=== PATIENT | female | born 1935 | race Caucasian/White ===

== ENCOUNTER 2017-11-11 07:28 | Day surgery (SDC) | payer OTHER ==
[~2017-11-11 07:28] MED LIST: TETRACAINE 0.5% OPHTH 1 DOSE AFFEYE ONE; VIGAMOX 0.5% OPHTH 1 DOSE AFFEYE ONE
[2017-11-11] MEDS ORDERED: VIGAMOX 0.5% OPHTH 1 DOSE AFFEYE ONE ×3 (07:30→10:41)
[2017-11-11] MEDS ORDERED: PROLENSA OPHTH 1 DOSE AFFEYE ONE (07:32)
[2017-11-11] MEDS ORDERED: ALPHAGAN-P OPHTH 1 DOSE AFFEYE ONE (07:34)
[2017-11-11] MEDS ORDERED: AK-DILATE 2.5% OPHTH 1 DOSE OP ONE ×5 (07:35→07:45)
[2017-11-11] MEDS ORDERED: MYDRIACIL OPHTH 1 DOSE AFFEYE ONE ×5 (07:35→07:45)
[2017-11-11] MEDS ORDERED: CYCLOGYL 1% OPHTH 1 DOSE OP ONE ×5 (07:35→07:45)
[2017-11-11] MEDS ORDERED: NS 500 ML IV 500 ML IV ONE (07:55)
[2017-11-11] MEDS ORDERED: AK-DILATE 10% OPHTH 1 DOSE AFFEYE ONE (08:55)
[2017-11-11] MEDS ORDERED: BETADINE OPHTH SOLN 5% EACHEYE ONE (10:18)
[2017-11-11] MEDS ORDERED: TETRACAINE 0.5% OPHTH 1 DOSE AFFEYE ONE ×3 (10:18→10:30)
[2017-11-11] MEDS ORDERED: XYLOCAINE-MPF 1% IJ ONE ×2 (10:25→10:30)
[2017-11-11] MEDS ORDERED: ADRENALINE CHL INJ IJ ONE ×2 (10:25→10:30)
[2017-11-11] MEDS ORDERED: DUOVISC IO ONE ×2 (10:25→10:30)
[2017-11-11] MEDS ORDERED: BSS OPHTH (PLAIN) 500 ML with VANCOMYCIN HCL 500 MG VIAL 25 MG, ADRENALINE CHL INJ 1 MG IR ONE ×6 (10:25)
[2017-11-11] MEDS ORDERED: DIPRIVAN VIAL ONE (10:48)
[2017-11-11 10:59] VITALS: BP 175/85
== END 2017-11-11 11:02 | disposition home or self-care (01) ==
LOC: SURG1 07:28
PROVIDERS: ATTEND Ophthalmology
PROC: 08RJ3JZ Replacement of Right Lens with Synthetic Substitute, Percutaneous Approach (ICD-10-PCS; principal; 2017-11-11 18:00)
PROC: 08DJ3ZZ Extraction of Right Lens, Percutaneous Approach (ICD-10-PCS; principal; 2017-11-11 18:00)
DX: H25.11 Age-related nuclear cataract, right eye (principal); H25.011 Cortical age-related cataract, right eye; H25.041 Posterior subcapsular polar age-related cataract, right eye
CPT/HCPCS: 99100; A4217; J0170; J3370; J3490

== ENCOUNTER 2017-11-25 10:14 | Day surgery (SDC) | payer OTHER ==
[2017-11-25] MEDS ORDERED: VIGAMOX 0.5% OPHTH 1 DOSE AFFEYE ONE ×5 (10:21→13:55)
[2017-11-25] MEDS ORDERED: PROLENSA OPHTH 1 DOSE AFFEYE ONE (10:32)
[2017-11-25] MEDS ORDERED: ALPHAGAN-P OPHTH 1 DOSE AFFEYE ONE (10:33)
[2017-11-25] MEDS ORDERED: CYCLOGYL 1% OPHTH 1 DOSE OP ONE ×3 (10:34→10:36)
[2017-11-25] MEDS ORDERED: MYDRIACIL OPHTH 1 DOSE AFFEYE ONE ×3 (10:34→10:36)
[2017-11-25] MEDS ORDERED: AK-DILATE 2.5% OPHTH 1 DOSE OP ONE ×3 (10:34→10:36)
[2017-11-25] MEDS ORDERED: TETRACAINE 0.5% OPHTH 1 DOSE AFFEYE ONE ×4 (10:50→13:45)
[2017-11-25] MEDS ORDERED: NS 500 ML IV 500 ML IV ONE (11:21)
[2017-11-25] MEDS ORDERED: BETADINE OPHTH SOLN 5% EACHEYE ONE (13:35)
[2017-11-25] MEDS ORDERED: XYLOCAINE-MPF 1% IJ ONE ×2 (13:40→13:45)
[2017-11-25] MEDS ORDERED: ADRENALINE CHL INJ IJ ONE ×2 (13:40→13:45)
[2017-11-25] MEDS ORDERED: DUOVISC IO ONE ×2 (13:40→13:45)
[2017-11-25] MEDS ORDERED: BSS OPHTH (PLAIN) 500 ML with VANCOMYCIN HCL 500 MG VIAL 25 MG, ADRENALINE CHL INJ 1 MG IR ONE ×6 (13:41)
[2017-11-25 14:38] VITALS: BP 134/65
[2017-11-25] MEDS ORDERED: VERSED ONE (15:41)
[2017-11-25] MEDS ORDERED: DIPRIVAN VIAL ONE (15:41)
== END 2017-11-25 14:10 | disposition home or self-care (01) ==
LOC: SURG1 10:14
PROVIDERS: ATTEND Ophthalmology
PROC: 08DK3ZZ Extraction of Left Lens, Percutaneous Approach (ICD-10-PCS; principal; 2017-11-25 20:15)
PROC: 08RK3JZ Replacement of Left Lens with Synthetic Substitute, Percutaneous Approach (ICD-10-PCS; principal; 2017-11-25 20:15)
DX: H25.12 Age-related nuclear cataract, left eye (principal); H25.012 Cortical age-related cataract, left eye; H25.042 Posterior subcapsular polar age-related cataract, left eye
CPT/HCPCS: 99100; A4217; J0170; J2250; J3370; J3490

== ENCOUNTER 2023-09-05 10:40 | Inpatient (IN) ==
[2023-09-05 12:57] VITALS: BMI 38.8
[2023-09-05 14:19] LABS: INR 1.06 (0.8-1.3)
[2023-09-05 14:20] LABS: BASOPHILS # (AUTO) 0.1 X10^3/uL (0.0-0.1); BASOPHILS % (AUTO) 0.8 % (0.2-1.0); EOSINOPHILS # (AUTO) 0.1 x10^3/uL (0.0-0.2); EOSINOPHILS % (AUTO) 0.8 % (0.9-2.9); HEMOGLOBIN 14.2 g/dL (12.0-16.0); LYMPHOCYTES # (AUTO) 1.4 X10^3/uL (1.3-2.9); LYMPHOCYTES % (AUTO) 14.1 % (21.0-51.0); MEAN CORPUSCULAR HEMOGLOBIN 29.5 pg (27.0-34.0); MEAN CORPUSCULAR VOLUME 89.5 fL (80.0-100.0); MEAN PLATELET VOLUME 8.2 fL (7.4-11.0); MONOCYTES # (AUTO) 0.8 x10^3/uL (0.3-0.8); MONOCYTES % (AUTO) 7.6 % (0.0-13.0); NEUTROPHILS # (AUTO) 7.7 x10^3/uL (2.2-4.8); NEUTROPHILS % (AUTO) 76.7 % (42.0-75.0); PLATELET COUNT 217 X10^3/uL (150.0-450.0); RED CELL DISTRIBUTION WIDTH 15.1 % (11.6-16.5)
[2023-09-05 14:25] LABS: ALANINE AMINOTRANSFERASE 18 Units/L (12-78); ALBUMIN 3.2 g/dL (3.4-5.0); ALKALINE PHOSPHATASE 87 Units/L (46-116); ASPARTATE AMINO TRANSFERASE 26 Units/L (15-37); BLOOD UREA NITROGEN 21 mg/dL (7-18); CALCIUM 8.4 mg/dL (8.5-10.1); CARBON DIOXIDE 27.2 mmol/L (21-32); CHLORIDE 104 mmol/L (98-107); CREATININE 1.14 mg/dL (0.55-1.02); GLUCOSE 89 mg/dL (65-99); POTASSIUM 4.3 mmol/L (3.5-5.1); SODIUM 138 mmol/L (136-145); TOTAL PROTEIN 6.3 g/dL (6.4-8.2); eGFR NON BLACK RACES 48 (>60)
--- NOTE | 2023-09-05 14:36 | EKG ---
Test Reason : SOB Blood Pressure : */* mmHG Vent. Rate : 65 BPM Atrial Rate : 65 BPM P-R Int : 182 ms QRS Dur : 82 ms QT Int : 452 ms P-R-T Axes : 16 -39 15 degrees QTc Int : 470 ms Normal sinus rhythm Left axis deviation Abnormal ECG No previous ECGs available Confirmed by Luis Manuel Brooks MD ([id number]) on 09/08/2023 7:35:28 AM Referred By: Confirmed By: Luis Manuel Brooks MD
[2023-09-05] MEDS: HEPARIN SODIUM IN D5W 25,000 UNITS/500 ML BAG IV PRN (15:00)
[2023-09-05] MEDS: LR 1,000 ML IV 1,000 ML IV SCH (15:01)
[2023-09-05] MEDS: HEPARIN SODIUM INJ 5000 UNITS IVP ONE (15:01)
[2023-09-05] MEDS: CATAPRES-TTS-1 TD SCH (15:07)
--- NOTE | 2023-09-05 17:34 | CT ---
EXAM:CTA AORTA WITH RUNOFFHISTORY:ischemic rest pain both legs;COMPARISON:NoneTECHNIQUE:Multiple CT axial images of the chest abdomen pelvis and lower extremity runoff were obtained before and after using IV contrast. 3D reconstructions utilizing axial MIPS imaging was performed and reviewed. Dose reduction techniques including Automated Exposure Control (AEC) and adjustment of mA and kV were utilized.Stenoses are measured using NASCET criteria.FINDINGS:Without contrast: Atherosclerotic calcification is present in the coronary arteries, aorta, and major arterial branches. Surgical clips are present in the gallbladder fossa from a cholecystectomy.With contrast: The aorta has a normal caliber from the aortic valve, through the arch and extending into the mid to lower abdomen to the bifurcation. There is no aortic aneurysm, dissection, or stenosis.Pulmonary arteries are well seen to segmental branches. There are no pulmonary emboli.The usual three-vessel anatomy is present off the aortic arch. No stenosis at the origins of the great vessels.All 3 mesenteric vessels are patent. Patent single artery to each kidney.Common iliac and external iliac arteries are widely patent. Both internal iliac arteries are widely patent.Right lower extremity: Diffuse disease is present in the femoropopliteal artery without focal occlusion. All 3 trifurcation branches are present in the proximal calf and extend to the ankle. Anterior tibial and posterior tibial extend into the foot.Left lower extremity: Diffuse atherosclerotic disease is present with no significant femoropopliteal artery occlusion. All 3 trifurcation branches are patent in the proximal calf and extend to the ankle. Anterior tibial and posterior tibial arteries extend into the foot.Body: Cardiomegaly is present. No pneumonia or pleural effusion. No biliary obstruction. No hydronephrosis. No bowel obstruction.IMPRESSION:1. Atherosclerosis without significant inflow or outflow occlusion2. No aneurysm or dissectionTHIS IS AN ELECTRONICALLY VERIFIED FINAL REPORT09/05/2023 5:31 PM - Electronically signed by Sebastien Eckert MD
[2023-09-05] MEDS: COZAAR PO ONE (17:37)
[2023-09-05] MEDS: OMNIPAQUE 350 mg/mL 50 mL BTL 50 ML ONE (17:47)
[2023-09-05] MEDS: OMNIPAQUE 350 mg/mL 100 mL BTL 100 ML ONE (17:47)
[2023-09-05] MEDS: PERCOCET TAB 5/325 MG PO PRN (21:20)
[2023-09-06 03:20] LABS: BASOPHILS # (AUTO) 0.1 X10^3/uL (0.0-0.1); BASOPHILS % (AUTO) 0.8 % (0.2-1.0); EOSINOPHILS # (AUTO) 0.1 x10^3/uL (0.0-0.2); EOSINOPHILS % (AUTO) 1.8 % (0.9-2.9); HEMATOCRIT 40.4 % (36.0-47.0); HEMOGLOBIN 13.2 g/dL (12.0-16.0); LYMPHOCYTES # (AUTO) 1.4 X10^3/uL (1.3-2.9); LYMPHOCYTES % (AUTO) 19.4 % (21.0-51.0); MEAN CORPUSCULAR HEMOGLOBIN 29.4 pg (27.0-34.0); MEAN CORPUSCULAR HGB CONC 32.8 g/dL (33.0-35.0); MEAN CORPUSCULAR VOLUME 89.6 fL (80.0-100.0); MEAN PLATELET VOLUME 8.3 fL (7.4-11.0); MONOCYTES # (AUTO) 0.6 x10^3/uL (0.3-0.8); MONOCYTES % (AUTO) 8.5 % (0.0-13.0); NEUTROPHILS % (AUTO) 69.5 % (42.0-75.0); PLATELET COUNT 216 X10^3/uL (150.0-450.0); RED BLOOD COUNT 4.51 X10^6/uL (3.5-5.4); WHITE BLOOD COUNT 7.2 X10^3/uL (3.6-10.0)
[2023-09-06 03:29] LABS: ALANINE AMINOTRANSFERASE 19 Units/L (12-78); ALBUMIN 2.7 g/dL (3.4-5.0); ALKALINE PHOSPHATASE 84 Units/L (46-116); ASPARTATE AMINO TRANSFERASE 19 Units/L (15-37); BLOOD UREA NITROGEN 14 mg/dL (7-18); CALCIUM 7.9 mg/dL (8.5-10.1); CARBON DIOXIDE 27.5 mmol/L (21-32); CHLORIDE 104 mmol/L (98-107); COR CA(FOR HYPOALB) 8.9 mg/dL (8.5-10.1); CREATININE 1.12 mg/dL (0.55-1.02); GLUCOSE 93 mg/dL (65-99); POTASSIUM 3.9 mmol/L (3.5-5.1); SODIUM 133 mmol/L (136-145); TOTAL PROTEIN 5.6 g/dL (6.4-8.2); eGFR NON BLACK RACES 49 (>60)
[2023-09-06] MEDS ORDERED: CONSULT PHARMACY - POTASSIUM & MAGNESIUM XX SCH (06:00)
--- NOTE | 2023-09-06 06:46 | RAD ---
EXAM: AP chest HISTORY: Preop COMPARISON: Report only no image [id number] FINDINGS: Borderline cardiomegaly with dilated thoracic aorta. Nonspecific interstitial prominence of the colt gs may be of technical origin. There is no consolidation, pneumothorax or pleural fluid. IMPRESSION: Cardiac prominence with dilatation of thoracic aorta consistent with arteriosclerosis. There is no definite pneumonia or kasie CHF. THIS IS AN ELECTRONICALLY VERIFIED FINAL REPORT 09/06/2023 6:43 AM - Electronically signed by Mayco Hays MD
[2023-09-06] MEDS: ZYLOPRIM PO SCH (08:24)
[2023-09-06] MEDS: MOBIC TAB 15 MG PO SCH (08:24)
[2023-09-06] MEDS: MAG-OX TAB PO SCH (08:25)
[2023-09-06] MEDS ORDERED: NORVASC TAB 5 MG PO SCH (09:00)
[2023-09-06] MEDS ORDERED: COZAAR PO SCH (09:00)
[2023-09-06] MEDS: CATAPRES-TTS-2 TD SCH (09:42)
[2023-09-06] MEDS: LASIX IVP ONE (09:42)
[2023-09-06] MEDS: COZAAR PO SCH (09:42)
--- NOTE | 2023-09-06 12:09 | RAD ---
EXAM: CHEST, 1 VIEW HISTORY: Shortness of breath COMPARISON: 09/05/2023 FINDINGS: The trachea is midline. The cardiac silhouette is enlarged with a tortuous thoracic aorta. The lung s are clear without focal infiltrate or effusion. The bony thorax is unremarkable. IMPRESSION: No acute cardiopulmonary disease. THIS IS AN ELECTRONICALLY VERIFIED FINAL REPORT 09/06/2023 12:05 PM - Electronically signed by Mike Paulson MD
--- NOTE | 2023-09-06 17:48 | NOTE.SOAP ---
Soap Note Note for Day of Date of Exam: 09/06/23 Subjective Data Subjective Data: Patient doing better Appreciate Dr. Saravia as agricultural consultant . CTA complete . Rubor improved with elevation of legs . Objective Data Pulse Rate: 59 Respiratory Rate: 24 Blood Pressure: 161/77 O2 Sat by Pulse Oximetry: 95 Objective Data: Patient comfortable . Rubor improved with elevation of legs . CTA does not correspond to ABIs. CTA interpreted as diffuse disease of both SFA but no occlusion with good runoff both legs Assessment Assessment: As above . CTA not corresponds to ABIS but with diffuse disease will need ontable arteriogram Plan Plan: Await cardiolgy comsult , tentatively plan ontable arteriogram Friday09/09/2023.
[2023-09-07 05:17] LABS: BASOPHILS # (AUTO) 0.1 X10^3/uL (0.0-0.1); BASOPHILS % (AUTO) 0.9 % (0.2-1.0); EOSINOPHILS # (AUTO) 0.1 x10^3/uL (0.0-0.2); EOSINOPHILS % (AUTO) 2.4 % (0.9-2.9); HEMATOCRIT 40.3 % (36.0-47.0); HEMOGLOBIN 13.4 g/dL (12.0-16.0); LYMPHOCYTES # (AUTO) 1.4 X10^3/uL (1.3-2.9); LYMPHOCYTES % (AUTO) 24.2 % (21.0-51.0); MEAN CORPUSCULAR HEMOGLOBIN 29.6 pg (27.0-34.0); MEAN CORPUSCULAR HGB CONC 33.3 g/dL (33.0-35.0); MEAN CORPUSCULAR VOLUME 88.7 fL (80.0-100.0); MEAN PLATELET VOLUME 8.2 fL (7.4-11.0); MONOCYTES # (AUTO) 0.7 x10^3/uL (0.3-0.8); MONOCYTES % (AUTO) 11.3 % (0.0-13.0); NEUTROPHILS # (AUTO) 3.6 x10^3/uL (2.2-4.8); NEUTROPHILS % (AUTO) 61.2 % (42.0-75.0); PLATELET COUNT 194 X10^3/uL (150.0-450.0); RED BLOOD COUNT 4.54 X10^6/uL (3.5-5.4); RED CELL DISTRIBUTION WIDTH 15.3 % (11.6-16.5); WHITE BLOOD COUNT 5.9 X10^3/uL (3.6-10.0)
[2023-09-07 05:27] LABS: ALANINE AMINOTRANSFERASE 18 Units/L (12-78); ALBUMIN 2.8 g/dL (3.4-5.0); ALKALINE PHOSPHATASE 85 Units/L (46-116); ASPARTATE AMINO TRANSFERASE 23 Units/L (15-37); BLOOD UREA NITROGEN 9 mg/dL (7-18); CALCIUM 8.1 mg/dL (8.5-10.1); CARBON DIOXIDE 31.7 mmol/L (21-32); CHLORIDE 104 mmol/L (98-107); COR CA(FOR HYPOALB) 9.1 mg/dL (8.5-10.1); CREATININE 1.12 mg/dL (0.55-1.02); GLUCOSE 104 mg/dL (65-99); POTASSIUM 3.6 mmol/L (3.5-5.1); SODIUM 143 mmol/L (136-145); TOTAL PROTEIN 5.7 g/dL (6.4-8.2); eGFR NON BLACK RACES 49 (>60)
[2023-09-07] MEDS ORDERED: CONSULT PHARMACY - POTASSIUM & MAGNESIUM XX SCH (06:00)
[2023-09-07] MEDS: K-DUR TAB 20 MEQ PO SCH (08:59)
--- NOTE | 2023-09-07 11:10 | DR.CONSULT ---
Consult - Consultation for Day of: Date: 09/06/23 - Chief Complaint Chief Complaint: DECREASED CIRCULATION IN BILATERAL LOWER EXTREMITIES, SOB, HTN - History of Present Illness History of Present Illness: IS A 88 YEAR OLD PATIENT WHO WAS ADMITTED INPATIENT STATUS BY FOR ON TABLE ARTERIOGRAM DUE TO CRITICAL ISCHEMIA OF BILATERAL LOWER EXTREMITIES. ON ADMISSION, SHE COMPLAINED OF SOME SHORTNESS OF BREATH AND WAS ALSO NOTED TO BE VERY HYPERTENSIVE, THEREFORE, WE WERE CONSULTED FOR MEDICAL EVALUATION. PATIENTS MEDICAL HX INCLUDES: HTN, GERD, HIATAL HERNIA, DIVERTICULOSIS, CHRONIC DIARRHEA, OVERACTIVE BLADDER, INCONTIN ENCE, ARTHRITIS. SURGICAL HX INCLUDES: ANGIOPLASTY/STENTS, APPENDECTOMY, HYSTERECTOMY, HEMORRHOIDECTOMY X 3, BREAST REDUCTION, AND HEART STENTS X 3. TODAY, SHE IS ALERT AND ORIENTED, SITTING UP IN BED ON MORNING ROUNDS. SHE DENIES COMPLAINTS THIS MORNING. NURSING STAFF REPORTS THAT SHE HAS BEEN HYPERTENSIVE THIS MORNING AND THROUGHOUT THE NIGHT. ON EXAMINATION, HEART IS REGULAR IN RATE AND RHYTHM. BILATERAL LUNGS ARE CLEAR TO AUSCULTATION. ABDOMEN IS ROUND, SOFT, AND NON-TENDER WITH NORMAL BOWEL SOUNDS NOTED IN ALL QUADRANTS. GOOD RANGE OF MOTION NOTED TO UPPER AND LOWER EXTREMITIES. PEDAL PULSES WERE PALPATED IN BILATERAL LOWER EXTREMITIES. HER VITALS THIS MORNING WERE: 98.0-65-24-97%-181/83. LABS WERE OBTAINED. WBC 7.2, RBC 4.51, HGB 13.2, HCT 40.4, PLT COUNT 216, SODIUM 133, POTASSIUM 3.9, CHLORIDE 104, BUN 14, CREATININE 1.12, GLUCOSE 93, CALCIUM 7.9, MAGNESIUM 1.7, TOTAL BILI 0.40, AST 19, ALT 19, ALK PHOS 84, TOTAL PROTEIN 5.6, ALBUMIN 2.7. CHEST XRAY WAS OBTAINED TODAY AND REVEALED: The trachea is midline. The cardiac silhouette is enlarged with a tortuous thoracic aorta. The lungs are clear without focal infiltrate or effusion. The bony thorax is unremarkable. CTA OF AORTA WITH RUNOFF WAS OBTAINED ON ADMISSION AND REVEALED: 1. Atherosclerosis without significant inflow or outflow occlusion 2. No aneurysm or dissection. EKG REVEALED: NORMAL SINUS RHYTHM WITH HR 65 BPM. SHE IS CURRENTLY RECEIVING LR AT 80 ML/HR, HEPARIN DRIP, CATAPRES 0.1MG/HR TD PATCH, PERCOCET 5/325MG Q4H PRN. TODAY, WE WILL INCREASE THE PATCH TO 0.2MG/HR AND ADD LOSARTAN 50MG DAILY. WE WILL RESUME HER HOME MEDS OF ALLOPURINOL AND MOBIC. OTHERWISE, WE WILL FOLLOW-UP WITH AM LABS AND CONTINUE TO MONITOR. WILL SEE HER FOR CARDIAC CLEARANCE ON FRIDAY. TIME SPENT ON CLINICAL ASSESSMENT, REVIEWING LABS AND IMAGING, DECISION MAKING, AND DOCUMENTATION GREATER THAN 75 MINUTES. - Past Medical History Past Medical History: Arthritis, GERD, Hypertension Additional Medical History: HIATAL HERNIA, DIVERTICULOSIS, CHRONIC DIARRHEA, OVERACTIVE BLADDER, INCONTINENCE - Past Surgical History Surgical History: Angioplasty/Stents, Appendectomy, Hysterectomy Additional Surgical History: HEMORRHOIDECTOMY, BREAST REDUCTION - Family History Family Medical History: Hypertension - Social History Alcohol Use: None Drug Use: None - Medications Home Medications: gentamicin Allergy (Severe, Verified 09/05/23 13:10) indomethacin [From Indocin] Allergy (Severe, Verified 09/05/23 13:10) nystatin Allergy (Intermediate, Verified 09/05/23 13:10) penicillamine Allergy (Intermediate, Verified 09/05/23 13:10) aspirin Allergy (Mild, Verified 09/05/23 13:10) benzoic acid Allergy (Mild, Verified 09/05/23 13:12) Cephalosporins Allergy (Mild, Verified 09/05/23 13:10) diclofenac [From Voltaren] Allergy (Mild, Verified 09/05/23 13:10) dopamine Allergy (Mild, Verified 09/05/23 13:10) ibuprofen Allergy (Mild, Verified 09/05/23 13:10) naproxen [From Aleve] Allergy (Mild, Verified 09/05/23 13:10) neomycin Allergy (Mild, Verified 09/05/23 13:10) nicotine Allergy (Mild, Verified 09/05/23 13:10) piroxicam [From Feldene] Allergy (Mild, Verified 09/05/23 13:10) potassium [From Potassimin] Allergy (Mild, Verified 09/05/23 13:12) sulfamethoxazole Allergy (Mild, Verified 09/05/23 13:10) sulindac [From Clinoril] Allergy (Mild, Verified 09/05/23 13:11) yellow dye Allergy (Mild, Verified 09/05/23 13:11) pyridine Allergy (Intermediate, Uncoded 09/05/23 13:05) tyramine Allergy (Intermediate, Uncoded 09/05/23 13:05) adriana Allergy (Mild, Uncoded 09/05/23 13:10) octopamine Allergy (Mild, Uncoded 09/05/23 13:10) tryptophan Allergy (Mild, Uncoded 09/05/23 13:10) CONTINUE taking the following medications allopurinol 100 mg tablet 100 mg PO QDAY 09/05/23 [History] colchicine 0.6 mg tablet 0.6 mg PO QDAY 09/05/23 [History] estradiol 0.01% (0.1 mg/gram) vaginal cream 1 appful vaginal PRN PRN 09/05/23 [History] flaxseed oil 1,000 mg capsule 1,000 mg PO DAILY 09/05/23 [History] guanfacine 2 mg tablet 2 mg PO BID 09/05/23 [History] - Review of Systems Constitutional: No Symptoms Reported Eyes: No Symptoms Reported ENT: No Symptoms Reported Respiratory: Shortness of Breath Gastrointestinal: No Symptoms Reported Genitourinary: No Symptoms Reported Musculoskeletal: No Symptoms Reported Skin: No Symptoms Reported Neurological: No Symptoms Reported - Physical Exam Vital Signs: Vital Signs Temperature 98.1 F Pulse Rate 57 Pulse Rate 51 Pulse Rate 54 Pulse Rate 55 Respiratory Rate 18 Respiratory Rate 19 Respiratory Rate 20 Respiratory Rate 22 Blood Pressure 159/71 Blood Pressure 148/65 Blood Pressure 171/76 Blood Pressure 175/81 O2 Sat by Pulse Oximetry 93 O2 Sat by Pulse Oximetry 93 O2 Sat by Pulse Oximetry 94 O2 Sat by Pulse Oximetry 94 Oriented: Normal Eyes: Normal Ear: Normal Nose: Normal Throat: Normal Respiratory: Diminished Throughout Cardiovascular: Normal : Normal Auscultation: Bowel Sounds: Normal Palpation: Normal Tenderness: Normal Skin: Normal Musculoskeletal: Normal Psychiatric: Normal Mood Description: Calm Affect: Normal Speech Pattern: Clear - Plan Plan: ONTABLE ARTERIOGRAM PLANNED FOR FRIDAY. WE WILL INCREASE THE CLONIDINE PATCH TO 0.2MG/HR AND ADD LOSARTAN 50MG DAILY. CARDIOLOGY CONSULT PENDING. CONTINUE HOME MEDS. FOLLOW-UP WITH AM LABS AND CONTINUE TO MONITOR - Allergies Allergies/Adverse Reactions: Allergies Allergy/AdvReac Type Severity Reaction Status Date / Time gentamicin Allergy Severe Verified 09/05/23 13:10 indomethacin [From Indocin] Allergy Severe Verified 09/05/23 13:10 nystatin Allergy Intermediate Verified 09/05/23 13:10 penicillamine Allergy Intermediate Verified 09/05/23 13:10 aspirin Allergy Mild Verified 09/05/23 13:10 benzoic acid Allergy Mild Verified 09/05/23 13:12 Cephalosporins Allergy Mild Verified 09/05/23 13:10 diclofenac [From Voltaren] Allergy Mild Verified 09/05/23 13:10 dopamine Allergy Mild Verified 09/05/23 13:10 ibuprofen Allergy Mild Verified 09/05/23 13:10 naproxen [From Aleve] Allergy Mild Verified 09/05/23 13:10 neomycin Allergy Mild Verified 09/05/23 13:10 nicotine Allergy Mild Verified 09/05/23 13:10 piroxicam [From Feldene] Allergy Mild Verified 09/05/23 13:10 potassium [From Potassimin] Allergy Mild Verified 09/05/23 13:12 sulfamethoxazole Allergy Mild Verified 09/05/23 13:10 sulindac [From Clinoril] Allergy Mild Verified 09/05/23 13:11 yellow dye Allergy Mild Verified 09/05/23 13:11 pyridine Allergy Intermediate Uncoded 09/05/23 13:05 tyramine Allergy Intermediate Uncoded 09/05/23 13:05 adriana Allergy Mild Uncoded 09/05/23 13:10 octopamine Allergy Mild Uncoded 09/05/23 13:10 tryptophan Allergy Mild Uncoded 09/05/23 13:10
[2023-09-07 18:26] VITALS: BP 203/91; PULSE 74; RESP 23; TEMP 97.9; O2SAT 94
--- NOTE | 2023-09-07 19:28 | W.DIS.FURT ---
Summary of Discharge Discharge Summary of Date Date of Exam: 09/07/23 Admission Date Date of Admission: 09/05/23 Admission Diagnosis Hospital Course: 88 year old female seen in the office on FridaySeptember 05 with complaints of bilateral lower extremity rest pain with significant swelling and cyanosis versus dependent rubor .Ankle brachial [employer] reported as 0.3 on the right and 0.7 on the left. History of coronary disease with multiple stents placed in the past .Patient also complaining of shortness of breath on exertion. Patient noted to be hypertensive and has not been taking her medications as prescribed .Patient admitted and placed on an IV Heparin drip. CT scan obtained showed questionable disease of both superficial femoral arteries but normal appearing runoff .With elevation of the legs the patient had change of color back to normal skin tone .Seen in consultation by Dr. Saravia who saw her in evaluation and started her back on medications for her blood pressure which is under much better control . Patient was to be seen by Cardiology in anticipation of possible procedure. Patient decided to leave against medical advice . Vital Signs: Vital Signs (72 hours) 09/06/23 17:35 09/05/23 13:00 09/05/23 13:21 Temperature Pulse Rate 59 L 63 Pulse Rate [Right Radial] 68 Respiratory Rate 24 20 28 H Blood Pressure 161/77 Blood Pressure [Left Arm] 193/88 O2 Sat by Pulse Oximetry 95 95 94 L Oxygen Delivery Method Room Air 09/05/23 13:30 09/05/23 13:45 09/05/23 14:00 Temperature Pulse Rate 60 60 66 Pulse Rate [Right Radial] Respiratory Rate 30 H 33 H 29 H Blood Pressure Blood Pressure [Left Arm] O2 Sat by Pulse Oximetry 94 L 95 95 Oxygen Delivery Method 09/05/23 14:15 09/05/23 14:30 09/05/23 14:45 Temperature Pulse Rate 64 62 65 Pulse Rate [Right Radial] Respiratory Rate 33 H 42 H 28 H Blood Pressure Blood Pressure [Left Arm] O2 Sat by Pulse Oximetry 95 95 95 Oxygen Delivery Method 09/05/23 15:00 09/05/23 15:08 09/05/23 15:08 Temperature Pulse Rate 70 69 Pulse Rate [Right Radial] Respiratory Rate 27 H 28 H Blood Pressure 74/51 Blood Pressure [Left Arm] O2 Sat by Pulse Oximetry 96 96 Oxygen Delivery Method 09/05/23 15:12 09/05/23 15:12 09/05/23 15:12 Temperature Pulse Rate 68 Pulse Rate [Right Radial] Respiratory Rate 25 H Blood Pressure 167/80 161/76 Blood Pressure [Left Arm] O2 Sat by Pulse Oximetry 96 Oxygen Delivery Method 09/05/23 15:15 09/05/23 15:50 09/05/23 16:00 Temperature 97.6 F Pulse Rate 63 98 H 64 Pulse Rate [Right Radial] Respiratory Rate 31 H 34 H 28 H Blood Pressure Blood Pressure [Left Arm] O2 Sat by Pulse Oximetry 94 L 92 L 95 Oxygen Delivery Method 09/05/23 16:01 09/05/23 16:01 09/05/23 16:15 Temperature Pulse Rate 64 64 Pulse Rate [Right Radial] Respiratory Rate 28 H 27 H Blood Pressure 183/77 Blood Pressure [Left Arm] O2 Sat by Pulse Oximetry 96 96 Oxygen Delivery Method 09/05/23 16:30 09/05/23 16:45 09/05/23 17:00 Temperature Pulse Rate 61 61 Pulse Rate [Right Radial] Respiratory Rate 25 H 29 H Blood Pressure 203/80 Blood Pressure [Left Arm] O2 Sat by Pulse Oximetry 96 96 Oxygen Delivery Method 09/05/23 17:00 09/05/23 17:03 09/05/23 17:03 Temperature Pulse Rate 62 67 Pulse Rate [Right Radial] Respiratory Rate 29 H 34 H Blood Pressure 208/91 Blood Pressure [Left Arm] O2 Sat by Pulse Oximetry 96 96 Oxygen Delivery Method 09/05/23 17:15 09/05/23 17:17 09/05/23 17:17 Temperature Pulse Rate 69 68 Pulse Rate [Right Radial] Respiratory Rate 38 H 36 H Blood Pressure 204/93 Blood Pressure [Left Arm] O2 Sat by Pulse Oximetry 97 97 Oxygen Delivery Method 09/05/23 17:30 09/05/23 17:45 09/05/23 18:00 Temperature Pulse Rate 68 84 72 Pulse Rate [Right Radial] Respiratory Rate 27 H 42 H 32 H Blood Pressure Blood Pressure [Left Arm] O2 Sat by Pulse Oximetry 95 96 97 Oxygen Delivery Method 09/05/23 18:15 09/05/23 18:15 09/05/23 18:17 Temperature Pulse Rate 70 70 Pulse Rate [Right Radial] Respiratory Rate 25 H 32 H Blood Pressure 211/91 Blood Pressure [Left Arm] O2 Sat by Pulse Oximetry 96 97 Oxygen Delivery Method 09/05/23 18:17 09/05/23 19:00 09/05/23 20:00 Temperature 98.2 F Pulse Rate 65 67 Pulse Rate [Right Radial] Respiratory Rate 22 26 H Blood Pressure 183/81 171/71 178/75 Blood Pressure [Left Arm] O2 Sat by Pulse Oximetry 95 95 Oxygen Delivery Method 09/05/23 21:00 09/05/23 21:20 09/05/23 22:00 Temperature Pulse Rate 70 62 Pulse Rate [Right Radial] Respiratory Rate 29 H 20 23 Blood Pressure 184/83 171/78 Blood Pressure [Left Arm] O2 Sat by Pulse Oximetry 96 95 Oxygen Delivery Method 09/05/23 23:00 09/05/23 22:20 09/06/23 00:00 Temperature 99.1 F Pulse Rate 62 61 Pulse Rate [Right Radial] Respiratory Rate 23 20 19 Blood Pressure 157/72 154/71 Blood Pressure [Left Arm] O2 Sat by Pulse Oximetry 91 L 93 L Oxygen Delivery Method 09/06/23 01:00 09/06/23 02:00 09/06/23 03:00 Temperature 97.7 F Pulse Rate 58 L 58 L 55 L Pulse Rate [Right Radial] Respiratory Rate 17 19 20 Blood Pressure 147/69 148/68 149/68 Blood Pressure [Left Arm] O2 Sat by Pulse Oximetry 91 L 93 L 95 Oxygen Delivery Method 09/06/23 04:00 09/06/23 05:00 09/06/23 06:00 Temperature Pulse Rate 58 L 57 L 68 Pulse Rate [Right Radial] Respiratory Rate 28 H 22 18 Blood Pressure 180/76 175/71 157/68 Blood Pressure [Left Arm] O2 Sat by Pulse Oximetry 95 95 96 Oxygen Delivery Method 09/05/23 22:00 09/05/23 22:00 09/05/23 22:15 Temperature Pulse Rate 61 60 Pulse Rate [Right Radial] Respiratory Rate 23 24 Blood Pressure 171/78 Blood Pressure [Left Arm] O2 Sat by Pulse Oximetry 95 94 L Oxygen Delivery Method 09/05/23 22:30 09/05/23 22:45 09/05/23 23:00 Temperature Pulse Rate 62 62 Pulse Rate [Right Radial] Respiratory Rate 22 20 Blood Pressure 157/72 Blood Pressure [Left Arm] O2 Sat by Pulse Oximetry 95 93 L Oxygen Delivery Method 09/05/23 23:00 09/05/23 23:15 09/05/23 23:30 Temperature Pulse Rate 60 60 63 Pulse Rate [Right Radial] Respiratory Rate 22 22 27 H Blood Pressure Blood Pressure [Left Arm] O2 Sat by Pulse Oximetry 92 L 92 L 95 Oxygen Delivery Method 09/05/23 23:45 09/06/23 00:00 09/06/23 00:00 Temperature Pulse Rate 56 L 61 Pulse Rate [Right Radial] Respiratory Rate 20 22 Blood Pressure 154/71 Blood Pressure [Left Arm] O2 Sat by Pulse Oximetry 93 L 93 L Oxygen Delivery Method 09/06/23 00:15 09/06/23 00:30 09/06/23 00:45 Temperature Pulse Rate 59 L 59 L 60 Pulse Rate [Right Radial] Respiratory Rate 24 20 21 Blood Pressure Blood Pressure [Left Arm] O2 Sat by Pulse Oximetry 93 L 89 L 93 L Oxygen Delivery Method 09/06/23 01:00 09/06/23 01:00 09/06/23 01:15 Temperature Pulse Rate 59 L 59 L Pulse Rate [Right Radial] Respiratory Rate 21 20 Blood Pressure 147/69 Blood Pressure [Left Arm] O2 Sat by Pulse Oximetry 94 L 93 L Oxygen Delivery Method 09/06/23 01:30 09/06/23 01:45 09/06/23 02:00 Temperature Pulse Rate 59 L 60 57 L Pulse Rate [Right Radial] Respiratory Rate 19 20 20 Blood Pressure Blood Pressure [Left Arm] O2 Sat by Pulse Oximetry 93 L 94 L 93 L Oxygen Delivery Method 09/06/23 02:00 09/06/23 02:15 09/06/23 02:30 Temperature Pulse Rate 58 L 59 L Pulse Rate [Right Radial] Respiratory Rate 20 19 Blood Pressure 148/68 Blood Pressure [Left Arm] O2 Sat by Pulse Oximetry 93 L 93 L Oxygen Delivery Method 09/06/23 02:45 09/06/23 03:00 09/06/23 03:00 Temperature Pulse Rate 56 L 58 L Pulse Rate [Right Radial] Respiratory Rate 19 20 Blood Pressure 149/68 Blood Pressure [Left Arm] O2 Sat by Pulse Oximetry 93 L 94 L Oxygen Delivery Method 09/06/23 03:15 09/06/23 03:30 09/06/23 03:45 Temperature Pulse Rate 59 L 57 L 57 L Pulse Rate [Right Radial] Respiratory Rate 25 H 26 H 26 H Blood Pressure Blood Pressure [Left Arm] O2 Sat by Pulse Oximetry 96 94 L 94 L Oxygen Delivery Method 09/06/23 04:00 09/06/23 04:04 09/06/23 04:04 Temperature Pulse Rate 57 L 57 L Pulse Rate [Right Radial] Respiratory Rate 25 H 26 H Blood Pressure 180/76 Blood Pressure [Left Arm] O2 Sat by Pulse Oximetry 95 95 Oxygen Delivery Method 09/06/23 04:15 09/06/23 04:30 09/06/23 04:45 Temperature Pulse Rate 58 L 56 L 60 Pulse Rate [Right Radial] Respiratory Rate 25 H 25 H 28 H Blood Pressure Blood Pressure [Left Arm] O2 Sat by Pulse Oximetry 95 96 98 Oxygen Delivery Method 09/06/23 05:00 09/06/23 05:00 09/06/23 05:15 Temperature Pulse Rate 59 L 56 L Pulse Rate [Right Radial] Respiratory Rate 23 24 Blood Pressure 175/71 Blood Pressure [Left Arm] O2 Sat by Pulse Oximetry 94 L 95 Oxygen Delivery Method 09/06/23 05:30 09/06/23 05:45 09/06/23 06:00 Temperature Pulse Rate 55 L 56 L 63 Pulse Rate [Right Radial] Respiratory Rate 20 19 21 Blood Pressure Blood Pressure [Left Arm] O2 Sat by Pulse Oximetry 91 L 94 L 94 L Oxygen Delivery Method 09/06/23 06:01 09/06/23 06:01 09/06/23 06:15 Temperature Pulse Rate 63 54 L Pulse Rate [Right Radial] Respiratory Rate 19 20 Blood Pressure 159/68 Blood Pressure [Left Arm] O2 Sat by Pulse Oximetry 97 94 L Oxygen Delivery Method 09/06/23 06:30 09/06/23 06:45 09/06/23 07:00 Temperature Pulse Rate 54 L 55 L 58 L Pulse Rate [Right Radial] Respiratory Rate 20 20 21 Blood Pressure Blood Pressure [Left Arm] O2 Sat by Pulse Oximetry 94 L 94 L 94 L Oxygen Delivery Method 09/06/23 07:01 09/06/23 07:01 09/06/23 07:15 Temperature Pulse Rate 56 L 56 L Pulse Rate [Right Radial] Respiratory Rate 20 22 Blood Pressure 163/69 Blood Pressure [Left Arm] O2 Sat by Pulse Oximetry 94 L 91 L Oxygen Delivery Method 09/06/23 07:30 09/06/23 07:45 09/06/23 08:00 Temperature Pulse Rate 91 H 64 Pulse Rate [Right Radial] Respiratory Rate 39 H 27 H Blood Pressure 181/83 Blood Pressure [Left Arm] O2 Sat by Pulse Oximetry 94 L 96 Oxygen Delivery Method 09/06/23 08:00 09/06/23 08:15 09/06/23 08:30 Temperature 98.0 F Pulse Rate 65 71 77 Pulse Rate [Right Radial] Respiratory Rate 28 H 41 H 40 H Blood Pressure Blood Pressure [Left Arm] O2 Sat by Pulse Oximetry 97 95 88 L Oxygen Delivery Method 09/06/23 08:30 09/06/23 09:43 09/06/23 08:45 Temperature Pulse Rate 61 Pulse Rate [Right Radial] Respiratory Rate 32 H Blood Pressure 199/88 178/82 Blood Pressure [Left Arm] O2 Sat by Pulse Oximetry 96 Oxygen Delivery Method 09/06/23 09:00 09/06/23 09:01 09/06/23 09:01 Temperature Pulse Rate 63 63 Pulse Rate [Right Radial] Respiratory Rate 33 H 33 H Blood Pressure 205/90 Blood Pressure [Left Arm] O2 Sat by Pulse Oximetry 96 96 Oxygen Delivery Method 09/06/23 09:11 09/06/23 09:11 09/06/23 09:15 Temperature Pulse Rate 63 64 Pulse Rate [Right Radial] Respiratory Rate 28 H 35 H Blood Pressure 190/85 Blood Pressure [Left Arm] O2 Sat by Pulse Oximetry 95 94 L Oxygen Delivery Method 09/06/23 09:30 09/06/23 09:42 09/06/23 09:42 Temperature Pulse Rate 60 61 Pulse Rate [Right Radial] Respiratory Rate 26 H 29 H Blood Pressure 178/83 Blood Pressure [Left Arm] O2 Sat by Pulse Oximetry 96 95 Oxygen Delivery Method 09/06/23 09:45 09/06/23 10:00 09/06/23 10:00 Temperature Pulse Rate 59 L 57 L Pulse Rate [Right Radial] Respiratory Rate 29 H 27 H Blood Pressure 183/80 Blood Pressure [Left Arm] O2 Sat by Pulse Oximetry 95 95 Oxygen Delivery Method 09/06/23 10:15 09/06/23 10:30 09/06/23 10:45 Temperature Pulse Rate 61 53 L 58 L Pulse Rate [Right Radial] Respiratory Rate 30 H 24 35 H Blood Pressure Blood Pressure [Left Arm] O2 Sat by Pulse Oximetry 94 L 95 96 Oxygen Delivery Method 09/06/23 11:00 09/06/23 11:01 09/06/23 11:01 Temperature Pulse Rate 60 60 Pulse Rate [Right Radial] Respiratory Rate 41 H 47 H Blood Pressure 160/73 Blood Pressure [Left Arm] O2 Sat by Pulse Oximetry 95 95 Oxygen Delivery Method 09/06/23 11:15 09/06/23 11:30 09/06/23 11:45 Temperature Pulse Rate 60 58 L 60 Pulse Rate [Right Radial] Respiratory Rate 41 H 26 H 27 H Blood Pressure Blood Pressure [Left Arm] O2 Sat by Pulse Oximetry 94 L 95 94 L Oxygen Delivery Method 09/06/23 12:00 09/06/23 12:00 09/06/23 12:06 Temperature Pulse Rate 63 67 Pulse Rate [Right Radial] Respiratory Rate 31 H 36 H Blood Pressure 184/75 Blood Pressure [Left Arm] O2 Sat by Pulse Oximetry 94 L 95 Oxygen Delivery Method 09/06/23 12:06 09/06/23 12:15 09/06/23 12:30 Temperature Pulse Rate 56 L 57 L Pulse Rate [Right Radial] Respiratory Rate 34 H 31 H Blood Pressure 198/77 Blood Pressure [Left Arm] O2 Sat by Pulse Oximetry 95 95 Oxygen Delivery Method 09/06/23 12:45 09/06/23 13:00 09/06/23 13:01 Temperature Pulse Rate 59 L 64 69 Pulse Rate [Right Radial] Respiratory Rate 24 44 H 41 H Blood Pressure Blood Pressure [Left Arm] O2 Sat by Pulse Oximetry 96 96 96 Oxygen Delivery Method 09/06/23 13:01 09/06/23 13:15 09/06/23 13:30 Temperature Pulse Rate 62 64 Pulse Rate [Right Radial] Respiratory Rate 33 H 36 H Blood Pressure 152/82 Blood Pressure [Left Arm] O2 Sat by Pulse Oximetry 94 L 96 Oxygen Delivery Method 09/06/23 13:45 09/06/23 14:00 09/06/23 14:00 Temperature Pulse Rate 63 60 Pulse Rate [Right Radial] Respiratory Rate 32 H 39 H Blood Pressure 169/72 Blood Pressure [Left Arm] O2 Sat by Pulse Oximetry 96 93 L Oxygen Delivery Method 09/06/23 14:15 09/06/23 14:30 09/06/23 14:45 Temperature Pulse Rate 60 58 L 59 L Pulse Rate [Right Radial] Respiratory Rate 39 H 24 26 H Blood Pressure Blood Pressure [Left Arm] O2 Sat by Pulse Oximetry 95 93 L 93 L Oxygen Delivery Method 09/06/23 12:00 09/06/23 15:00 09/06/23 15:00 Temperature 98.2 F Pulse Rate 59 L Pulse Rate [Right Radial] Respiratory Rate 31 H Blood Pressure 179/77 Blood Pressure [Left Arm] O2 Sat by Pulse Oximetry 96 Oxygen Delivery Method 09/06/23 15:00 09/06/23 15:15 09/06/23 15:30 Temperature Pulse Rate 63 59 L Pulse Rate [Right Radial] Respiratory Rate 33 H 32 H Blood Pressure 179/77 Blood Pressure [Left Arm] O2 Sat by Pulse Oximetry 95 95 Oxygen Delivery Method 09/06/23 15:45 09/06/23 16:00 09/06/23 16:00 Temperature Pulse Rate 59 L 67 Pulse Rate [Right Radial] Respiratory Rate 26 H 39 H Blood Pressure 167/73 Blood Pressure [Left Arm] O2 Sat by Pulse Oximetry 94 L 94 L Oxygen Delivery Method 09/06/23 16:58 09/06/23 16:15 09/06/23 16:30 Temperature 98.0 F Pulse Rate 63 64 Pulse Rate [Right Radial] Respiratory Rate 27 H 42 H Blood Pressure Blood Pressure [Left Arm] O2 Sat by Pulse Oximetry 94 L 95 Oxygen Delivery Method 09/06/23 16:45 09/06/23 17:00 09/06/23 17:15 Temperature Pulse Rate 90 59 L 61 Pulse Rate [Right Radial] Respiratory Rate 44 H 24 28 H Blood Pressure Blood Pressure [Left Arm] O2 Sat by Pulse Oximetry 86 L 95 94 L Oxygen Delivery Method 09/06/23 17:30 09/06/23 17:45 09/06/23 18:00 Temperature Pulse Rate 64 67 63 Pulse Rate [Right Radial] Respiratory Rate 34 H 45 H 29 H Blood Pressure Blood Pressure [Left Arm] O2 Sat by Pulse Oximetry 95 96 95 Oxygen Delivery Method 09/06/23 18:25 09/06/23 18:15 09/06/23 20:24 Temperature Pulse Rate 63 Pulse Rate [Right Radial] Respiratory Rate 26 H 22 Blood Pressure 144/69 Blood Pressure [Left Arm] O2 Sat by Pulse Oximetry 95 Oxygen Delivery Method 09/06/23 19:00 09/06/23 19:00 09/06/23 20:00 Temperature 98.1 F Pulse Rate 59 L 59 L Pulse Rate [Right Radial] Respiratory Rate 25 H 26 H Blood Pressure 159/77 171/74 Blood Pressure [Left Arm] O2 Sat by Pulse Oximetry 94 L 96 Oxygen Delivery Method Room Air Room Air Room Air 09/06/23 21:00 09/06/23 22:00 09/06/23 21:24 Temperature Pulse Rate 61 56 L Pulse Rate [Right Radial] Respiratory Rate 24 18 20 Blood Pressure 177/70 157/67 Blood Pressure [Left Arm] O2 Sat by Pulse Oximetry 95 95 Oxygen Delivery Method Room Air Room Air 09/06/23 23:00 09/07/23 00:00 09/07/23 01:00 Temperature 98.1 F Pulse Rate 54 L 53 L 56 L Pulse Rate [Right Radial] Respiratory Rate 19 19 18 Blood Pressure 149/64 152/65 156/69 Blood Pressure [Left Arm] O2 Sat by Pulse Oximetry 95 93 L 93 L Oxygen Delivery Method Room Air Room Air Room Air 09/07/23 02:00 09/07/23 03:00 09/07/23 04:00 Temperature 98.1 F Pulse Rate 52 L 52 L 55 L Pulse Rate [Right Radial] Respiratory Rate 18 18 22 Blood Pressure 132/63 132/63 175/81 Blood Pressure [Left Arm] O2 Sat by Pulse Oximetry 93 L 93 L 94 L Oxygen Delivery Method Room Air Room Air Room Air 09/07/23 05:00 09/07/23 06:00 09/07/23 07:00 Temperature Pulse Rate 54 L 51 L Pulse Rate [Right Radial] Respiratory Rate 20 19 Blood Pressure 171/76 148/65 Blood Pressure [Left Arm] O2 Sat by Pulse Oximetry 94 L 93 L Oxygen Delivery Method Room Air Room Air Room Air 09/07/23 07:00 09/07/23 08:00 09/07/23 09:00 Temperature 97.8 F Pulse Rate 57 L 58 L 56 L Pulse Rate [Right Radial] Respiratory Rate 18 23 22 Blood Pressure 159/71 157/72 152/70 Blood Pressure [Left Arm] O2 Sat by Pulse Oximetry 93 L 93 L 94 L Oxygen Delivery Method Room Air Room Air Room Air 09/07/23 10:00 09/07/23 11:00 09/07/23 12:00 Temperature 98.6 F Pulse Rate 57 L 53 L 59 L Pulse Rate [Right Radial] Respiratory Rate 23 27 H 24 Blood Pressure 160/72 151/70 172/75 Blood Pressure [Left Arm] O2 Sat by Pulse Oximetry 93 L 95 95 Oxygen Delivery Method Room Air Room Air Room Air 09/07/23 13:00 09/07/23 14:00 09/07/23 15:00 Temperature Pulse Rate 59 L 57 L 53 L Pulse Rate [Right Radial] Respiratory Rate 24 20 22 Blood Pressure 172/75 175/73 158/71 Blood Pressure [Left Arm] O2 Sat by Pulse Oximetry 95 95 95 Oxygen Delivery Method Room Air Room Air Room Air 09/07/23 16:00 09/07/23 17:00 09/07/23 18:00 Temperature 97.9 F Pulse Rate 60 56 L 74 Pulse Rate [Right Radial] Respiratory Rate 27 H 32 H 23 Blood Pressure 171/78 169/76 203/91 Blood Pressure [Left Arm] O2 Sat by Pulse Oximetry 95 97 94 L Oxygen Delivery Method Room Air Room Air Room Air Labs: Laboratory Last Values WBC 5.9 X10^3/uL (3.6-10.0) 09/07/23 04:55 RBC 4.54 X10^6/uL (3.5-5.4) 09/07/23 04:55 Hgb 13.4 g/dL (12.0-16.0) 09/07/23 04:55 Hct 40.3 % (36.0-47.0) 09/07/23 04:55 MCV 88.7 fL (80.0-100.0) 09/07/23 04:55 MCH 29.6 pg (27.0-34.0) 09/07/23 04:55 MCHC 33.3 g/dL (33.0-35.0) 09/07/23 04:55 RDW 15.3 % (11.6-16.5) 09/07/23 04:55 Plt Count 194 X10^3/uL (150.0-450.0) 09/07/23 04:55 MPV 8.2 fL (7.4-11.0) 09/07/23 04:55 Neut % (Auto) 61.2 % (42.0-75.0) 09/07/23 04:55 Lymph % (Auto) 24.2 % (21.0-51.0) 09/07/23 04:55 [place] % (Auto) 11.3 % (0.0-13.0) 09/07/23 04:55 Eos % (Auto) 2.4 % (0.9-2.9) 09/07/23 04:55 Baso % (Auto) 0.9 % (0.2-1.0) 09/07/23 04:55 Neut # (Auto) 3.6 x10^3/uL (2.2-4.8) 09/07/23 04:55 Lymph # (Auto) 1.4 X10^3/uL (1.3-2.9) 09/07/23 04:55 [place] # (Auto) 0.7 x10^3/uL (0.3-0.8) 09/07/23 04:55 Eos # (Auto) 0.1 x10^3/uL (0.0-0.2) 09/07/23 04:55 Baso # (Auto) 0.1 X10^3/uL (0.0-0.1) 09/07/23 04:55 Absolute Nucleated RBC 0.2 /100WBC 09/07/23 04:55 PT 13.6 SECONDS (11.8-14.3) 09/05/23 14:00 INR Target Range - 09/05/23 14:00 INR 1.06 (0.8-1.3) 09/05/23 14:00 APTT 90.7 SECONDS (22.9-36.5) H 09/07/23 04:55 PTT Comment - 09/07/23 04:55 Sodium 143 mmol/L (136-145) 09/07/23 04:55 Corrected Sodium TNP 09/07/23 04:55 Potassium 3.6 mmol/L (3.5-5.1) 09/07/23 04:55 Chloride 104 mmol/L (98-107) 09/07/23 04:55 Carbon Dioxide 31.7 mmol/L (21-32) 09/07/23 04:55 BUN 9 mg/dL (7-18) 09/07/23 04:55 Creatinine 1.12 mg/dL (0.55-1.02) H 09/07/23 04:55 Est GFR (MDRD) Af Amer 59 (>60) 09/07/23 04:55 Est GFR (MDRD) Non-Af 49 (>60) L 09/07/23 04:55 Glucose 104 mg/dL (65-99) H 09/07/23 04:55 Calcium 8.1 mg/dL (8.5-10.1) L 09/07/23 04:55 Corrected Calcium 9.1 mg/dL (8.5-10.1) 09/07/23 04:55 Magnesium 2.0 mg/dL (2.0-2.9) 09/07/23 04:55 Total Bilirubin 0.50 mg/dL (0.2-1.0) 09/07/23 04:55 AST 23 Units/L (15-37) 09/07/23 04:55 ALT 18 Units/L (12-78) 09/07/23 04:55 Alkaline Phosphatase 85 Units/L (46-116) 09/07/23 04:55 Total Protein 5.7 g/dL (6.4-8.2) L 09/07/23 04:55 Albumin 2.8 g/dL (3.4-5.0) L 09/07/23 04:55 Globulin 2.9 g/dL (2.5-4.5) 09/07/23 04:55 Albumin/Globulin Ratio 1.0 Ratio (1.1-2.1) L 09/07/23 04:55 Reason For Visit: CRITICAL ISCHEMIA BILATERAL LOWER EXTREMITIES Discharge Date Discharge Date: 09/07/23 Discharge Diagnosis All Active Problems (Updated 09/05/23 @ 13:40 by Ronald Houser) Atherosclerosis of [place] arteries of extremities with rest pain, right leg (Acute) Atherosclerosis of [place] arteries of extremities with rest pain, left leg (Acute) Essential (primary) hypertension (Acute) Chronic ischemic heart disease, unspecified (Acute) Plan of Treatment: Patient left against medical advice Discharge Medications Discharge Medications: gentamicin Allergy (Severe, Verified 09/05/23 13:10) indomethacin [From Indocin] Allergy (Severe, Verified 09/05/23 13:10) nystatin Allergy (Intermediate, Verified 09/05/23 13:10) penicillamine Allergy (Intermediate, Verified 09/05/23 13:10) aspirin Allergy (Mild, Verified 09/05/23 13:10) benzoic acid Allergy (Mild, Verified 09/05/23 13:12) Cephalosporins Allergy (Mild, Verified 09/05/23 13:10) diclofenac [From Voltaren] Allergy (Mild, Verified 09/05/23 13:10) dopamine Allergy (Mild, Verified 09/05/23 13:10) ibuprofen Allergy (Mild, Verified 09/05/23 13:10) naproxen [From Aleve] Allergy (Mild, Verified 09/05/23 13:10) neomycin Allergy (Mild, Verified 09/05/23 13:10) nicotine Allergy (Mild, Verified 09/05/23 13:10) piroxicam [From Feldene] Allergy (Mild, Verified 09/05/23 13:10) potassium [From Potassimin] Allergy (Mild, Verified 09/05/23 13:12) sulfamethoxazole Allergy (Mild, Verified 09/05/23 13:10) sulindac [From Clinoril] Allergy (Mild, Verified 09/05/23 13:11) yellow dye Allergy (Mild, Verified 09/05/23 13:11) pyridine Allergy (Intermediate, Uncoded 09/05/23 13:05) tyramine Allergy (Intermediate, Uncoded 09/05/23 13:05) adriana Allergy (Mild, Uncoded 09/05/23 13:10) octopamine Allergy (Mild, Uncoded 09/05/23 13:10) tryptophan Allergy (Mild, Uncoded 09/05/23 13:10) CONTINUE taking the following medications allopurinol 100 mg tablet 100 mg PO QDAY 09/05/23 [History] colchicine 0.6 mg tablet 0.6 mg PO QDAY 09/05/23 [History] estradiol 0.01% (0.1 mg/gram) vaginal cream 1 appful vaginal PRN PRN 09/05/23 [History] flaxseed oil 1,000 mg capsule 1,000 mg PO DAILY 09/05/23 [History] guanfacine 2 mg tablet 2 mg PO BID 09/05/23 [History] Discharge Disposition Assessment: see hospital course. Patient left against medical advice Discharge Plan Discharge Plan Hospital Course: 88 year old female seen in the office on FridaySeptember 05 with complaints of bilateral lower extremity rest pain with significant swelling and cyanosis versus dependent rubor .Ankle brachial [employer] reported as 0.3 on the right and 0.7 on the left. History of coronary disease with multiple stents placed in the past .Patient also complaining of shortness of breath on exertion. Patient noted to be hypertensive and has not been taking her medications as prescribed .Patient admitted and placed on an IV Heparin drip. CT scan obtained showed questionable disease of both superficial femoral arteries but normal appearing runoff .With elevation of the legs the patient had change of color back to normal skin tone .Seen in consultation by Dr. Saravia who saw her in evaluation and started her back on medications for her blood pressure which is under much better control . Patient was to be seen by Cardiology in anticipation of possible procedure. Patient decided to leave against medical advice . Patient Disposition: 01 HOME, SELF-CARE Condition: Stable Health Concerns: Post Hospitalization: new medications and changes needed to prevent readmission or further decline. Pt educated and given instructions on all concerns. Plan of Treatment: Patient left against medical advice Assessment: see hospital course. Patient left against medical advice Prescription drug monitoring program results: PDMP was not reviewed Prescriptions: Continued allopurinol 100 mg tablet 100 mg PO QDAY flaxseed oil 1,000 mg Capsule 1,000 mg PO DAILY estradiol 0.01 % (0.1 mg/gram) cream 1 appful vaginal PRN PRN colchicine 0.6 mg tablet 0.6 mg PO QDAY guanfacine 2 mg tablet 2 mg PO BID Follow ups/Referrals Follow ups/Referrals: NBA LESLIE [Primary Care Provider] - 1 WEEK Instructions Stand Alone Forms: Excuse From Work or School, Post Hospital Follow Up Care
--- NOTE | 2023-09-09 18:43 | DR.UPDATE ---
H&P UPDATE Review Yes Any changes to H&P?: No Patient was examined?: Yes
== END 2023-09-07 19:00 | disposition left against medical advice (07) | DRG 301 ==
LOC: ICU 11:42
PROVIDERS: ADMIT Surgery; ATTEND Surgery
DX: R79.1 Abnormal coagulation profile; R26.89 Other abnormalities of gait and mobility; I25.10 Atherosclerotic heart disease of native coronary artery without angina pectoris; I70.223 Atherosclerosis of native arteries of extremities with rest pain, bilateral legs; K21.9 Gastro-esophageal reflux disease without esophagitis; R06.02 Shortness of breath; I10 Essential (primary) hypertension; M10.9 Gout, unspecified; Z53.29 Procedure and treatment not carried out because of patient's decision for other reasons